=== PATIENT | female | born 1955 | race American Indian/Alaskan Native ===

== ENCOUNTER 2017-10-01 12:56 | Emergency (ER) | payer BC ==
[2017-10-01] MEDS ORDERED: NORCO 7.5/325 PO ONE (15:07)
--- NOTE | 2017-10-01 15:07 | Emergency Department Report ---
Blank Doc - Documentation Documentation: Patient is a 61-year-old female who's complaining of right sided back pain. 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 Patient states that the pain is progressively getting worse instead of better despite being on a muscle relaxant that her primary care physician gave her. Patient states the pain is 8 out of 10 is constant and worse with movement better with rest. Patient also states that it hurts when she takes a deep breath as well and has been slightly short of breath. Patient denies any productive cough fever chills at this moment. Patient denies any right upper quadrant pain when she eats.
[2017-10-01] MEDS ORDERED: TORADOL IV ONE (16:04)
[2017-10-01 16:19] LABS: Basophils # (Auto) 0.1 K/mm3 (0.0-0.1); Basophils % (Auto) 0.6 % (0.0-1.8); Eosinophils # (Auto) 0.2 K/mm3 (0.0-0.4); Eosinophils % (Auto) 2.4 % (0.0-4.3); Hematocrit 37.5 % (30.3-42.9); Hemoglobin 12.2 gm/dl (10.1-14.3); Lymphocytes # (Auto) 2.4 K/mm3 (1.2-5.4); Lymphocytes % (Auto) 29.3 % (13.4-35.0); Mean Corpuscular HGB Conc 33 % (30-34); Mean Corpuscular Volume 76 fl (79-97); Monocytes # (Auto) 0.4 K/mm3 (0.0-0.8); Monocytes % (Auto) 4.6 % (0.0-7.3); Platelet Count 296 K/mm3 (140-440); Red Blood Count 4.91 M/mm3 (3.65-5.03); Red Cell Distribution Width 17.9 % (13.2-15.2)
[2017-10-01 16:23] LABS: Mean Corpuscular Hemoglobin 25 pg (28-32)
[2017-10-01 16:25] LABS: INR 0.87 (0.87-1.13); Partial Thromboplastin Time 29.3 Sec. (24.2-36.6)
[2017-10-01 16:30] LABS: Bacteria,Urine 1+ /HPF (Negative); Bilirubin,Urine NEG (Negative); Blood,Urine NEG (Negative); Color,Urine Straw (Yellow); Protein,Urine <15 mg/dL mg/dL (Negative); Urobilinogen,Urine < 2.0 mg/dL (<2.0)
[2017-10-01 16:35] LABS: BUN/Creatinine Ratio 18; Blood Urea Nitrogen 14 mg/dL (7-17); Calcium 9.2 mg/dL (8.4-10.2); Hemolysis Index 1
--- NOTE | 2017-10-01 19:14 | Nuclear Medicine Report ---
FINAL REPORT EXAM: NM LUNG SCAN PERF/VENT HISTORY: elevated ddimer, right sided pleur back/chest pain TECHNIQUE: Ventilation-perfusion scan Ventilation study performed with 15 millicurie Xe-[id number] Perfusion study performed following IV administration 5 millicuries technetium 99 M MAA PRIORS: Correlation made to chest radiograph of the same day FINDINGS: Perfusion study there is homogeneous distribution of the radiotracer. No perfusion defects identified. On ventilation study there is homogeneous distribution with no evidence for significant air trapping. IMPRESSION: Negative. No scintigraphic evidence for acute pulmonary embolus
--- NOTE | 2017-10-01 19:15 | XRay Report ---
FINAL REPORT EXAM: XR CHEST ROUTINE 2V HISTORY: chest back pain TECHNIQUE: Two view chest PA and lateral PRIORS: None. FINDINGS: Cardiac and mediastinal contours are unremarkable. No focal pulmonary infiltrate is identified. No pleural fluid collection seen. Pulmonary vasculature is unremarkable. IMPRESSION: Negative two-view chest
[2017-10-01 19:23] VITALS: BP 124/70
--- NOTE | 2017-10-01 19:53 | Emergency Department Report ---
ED Back Pain/Injury HPI - General Chief Complaint: Back Pain/Injury Stated Complaint: CP/SUKUMAR/BACK PAIN Time Seen by Provider: 10/01/17 14:52 Source: patient Limitations: No Limitations - History of Present Illness Initial Comments: This is a 61-year-old female nontoxic, well nourished in appearance, no acute signs of distress presents to the ED with c/o of acute on chronic intermittent right mid back pain x1 year. 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 Patient stated it became worse today. Patient denies any trauma to the UVJ. Patient stated at times she gets short of breath and describes pain as stabbing sensation and aching. Patient denies any abdominal pain. Patient denies any chest pain, numbness, tingling, fever, chills, nausea , vomiting, headache or stiff neck. Patient denies any allergies or significant past medical history. MD Complaint: back pain -: days(s) (2) Similar Symptoms Previously: Yes Place: home Radiation: other (right chest region) Severity: mild Severity scale (0 -10): 8 Quality: stabbing, aching Consistency: intermittent, now resolved Improves With: immobilization Worsens With: movement Context: while lifting, turning/twisting Associated Symptoms: denies other symptoms. denies: confusion, weakness, chest pain, numbness, difficulty walking, cough, difficulty urinating, diaphoresis, incontinence, fever/chills, constipation, headaches, abdominal pain, loss of appetite, malaise, nausea/vomiting, rash, seizure, shortness of breath, syncope - Related Data Previous Rx's Medication Instructions Recorded Last Taken Type Ibuprofen [Motrin] 600 mg PO Q8H PRN #30 tablet 10/01/17 Unknown Rx methOCARBAMOL [Robaxin TAB] 500 mg PO BID #20 tab 10/01/17 Unknown Rx Allergies Allergy/AdvReac Type Severity Reaction Status Date / Time No Known Allergies Allergy Unverified 10/01/17 13:11 ED Review of Systems ROS: Stated complaint: CP/SUKUMAR/BACK PAIN Other details as noted in HPI Constitutional: denies: chills, fever Eyes: denies: eye pain, eye discharge, vision change ENT: denies: ear pain, throat pain Respiratory: denies: cough, shortness of breath, wheezing Cardiovascular: denies: chest pain, palpitations Endocrine: no symptoms reported Gastrointestinal: denies: abdominal pain, nausea, diarrhea Genitourinary: denies: urgency, dysuria, discharge Musculoskeletal: back pain. denies: joint swelling, arthralgia Skin: denies: rash, lesions Neurological: denies: headache, weakness, paresthesias Psychiatric: denies: anxiety, depression Hematological/Lymphatic: denies: easy bleeding, easy bruising ED Past Medical Hx - Past Medical History Hx Hypertension: Yes Hx Diabetes: Yes ("borderline") - Surgical History Past Surgical History?: No - Social History Smoking Status: Never Smoker Substance Use Type: None - Medications Home Medications: Home Medications Medication Instructions Recorded Confirmed Last Taken Type Ibuprofen [Motrin] 600 mg PO Q8H PRN #30 tablet 10/01/17 Unknown Rx methOCARBAMOL [Robaxin TAB] 500 mg PO BID #20 tab 10/01/17 Unknown Rx ED Physical Exam - General Limitations: No Limitations General appearance: alert, in no apparent distress - Head Head exam: Present: atraumatic, normocephalic - Eye Eye exam: Present: normal appearance Pupils: Present: normal accommodation - ENT ENT exam: Present: normal exam, mucous membranes moist - Neck Neck exam: Present: normal inspection, full ROM. Absent: tenderness, meningismus, lymphadenopathy, thyromegaly - Respiratory Respiratory exam: Present: normal lung sounds bilaterally. Absent: respiratory distress, wheezes, rales, rhonchi, stridor, chest wall tenderness, accessory muscle use, decreased breath sounds, prolonged expiratory - Cardiovascular Cardiovascular Exam: Present: regular rate, normal rhythm, normal heart sounds. Absent: bradycardia, tachycardia, irregular rhythm, systolic murmur, diastolic murmur, rubs, gallop - GI/Abdominal GI/Abdominal exam: Present: soft, normal bowel sounds. Absent: distended, tenderness, guarding, rebound, rigid, diminished bowel sounds - Expanded GI/Abdominal Exam Expanded GI/Abdominal exam: Absent: psoas sign, obturator sign, heel tap sign, Hernandez's sign, Rovsing's sign, tenderness at Mcburney's Point, ascites - Rectal Rectal exam: Present: deferred - Extremities Exam Extremities exam: Present: normal inspection, full ROM, normal capillary refill. Absent: tenderness, pedal edema, joint swelling, calf tenderness - Back Exam Back exam: Present: normal inspection, full ROM, paraspinal tenderness ( midthroacic region). Absent: tenderness, CVA tenderness (R), CVA tenderness (L) , muscle spasm, vertebral tenderness, rash noted - Expanded Back Exam Expanded Back exam: Absent: saddle anesthesia Back exam: Negative Straight Leg Raising: Left, Right - Neurological Exam Neurological exam: Present: alert, oriented X3, normal gait, reflexes normal - Psychiatric Psychiatric exam: Present: normal affect, normal mood - Skin Skin exam: Present: warm, dry, intact, normal color. Absent: rash ED Course Vital Signs 10/01/17 10/01/17 10/01/17 13:07 15:19 19:22 Temperature 98.2 F 98.4 F Pulse Rate 99 H 87 Respiratory 16 16 18 Rate Blood Pressure 112/65 Blood Pressure 124/70 [Right] O2 Sat by Pulse 98 96 Oximetry - Reevaluation(s) Reevaluation #1: 10/01/17 19:54 Patient is speaking in full sentences with no signs of distress noted. - Consultations Consultation #1: 10/01/17 19:57 Patient has been consulted with Dr. Groves about patient history, physical exam , and labs and examined and screened patient and agrees to ED plan of care and discharge plan of care. ED Medical Decision Making - Lab Data Result diagrams: 10/01/17 16:06 10/01/17 16:06 - Medical Decision Making This is a 61-year-old female that presents with muscle spasm. Patient is stable and was examined by me and Dr. Groves. Labs obtained and all within normal limits. Normal xray of chest results indicated by radiologist. VQ scan negative and normal and also dictated by radiologist. Patient received pain medication and EDif symptoms has resolved and subsided. Daughters currently at the bedside and states she will talk the patient home after discharge due to drowsiness of [place]. Patient was instructed to discontinue Flexeril and try taken Robaxin and see if this would help her for muscle spasms. Patient is also discharged with Motrin. Patient was referred instructed to Follow-up with a primary care doctor in 3-5 days or if symptoms worsen and continue return to emergency room as soon as possible. At time of discharge, the patient does not seem toxic or ill in appearance. No acute signs of distress noted. Patient agrees to discharge treatment plan of care. No further questions noted by the patient. Critical care attestation.: If time is entered above; I have spent that time in minutes in the direct care of this critically ill patient, excluding procedure time. ED Disposition Clinical Impression: Muscle spasm Disposition: DC-01 TO HOME OR SELFCARE Is pt being admited?: No Does the pt Need Aspirin: No Condition: Stable Instructions: Muscle Spasm (ED), Ibuprofen (By mouth), Methocarbamol (By mouth) Additional Instructions: Follow-up with a primary care doctor in 3-5 days or if symptoms worsen and continue return to emergency room as soon as possible. Discontinue Flexeril and take Robaxin as prescribed. This may cause drowsiness be aware and do not operate any machinery while taking Robaxin. Prescriptions: Ibuprofen [Motrin] 600 mg PO Q8H PRN #30 tablet PRN Reason: Pain methOCARBAMOL [Robaxin TAB] 500 mg PO BID #20 tab Referrals: RAZ STODDARD [Other] - 3-5 Days MARIAN CHA MD [Staff Physician] - 3-5 Days [facility] [Outside] - 3-5 Days [facility] [Outside] - 3-5 Days Forms: Work/School Release Form(ED)
== END 2017-10-01 20:11 | disposition home or self-care (01) ==
LOC: ED 12:56
DX: M62.830 Muscle spasm of back (principal); I10 Essential (primary) hypertension
CPT/HCPCS: 36415; 71046; 78582; 80048; 81001; 85025; 85379; 85610; 85730; 96374; 99284; A9540; A9558; J1885

== ENCOUNTER 2020-04-17 09:49 | Emergency (ER) | payer MEDICARE ==
[2020-04-17 09:55] VITALS: BP 120/69
[2020-04-17] MEDS ORDERED: HYDROcodone/ACETAMINOPHEN 5-325 MG TAB PO ONE (12:44)
--- NOTE | 2020-04-17 13:21 | Cat Scan Report ---
CT LUMBAR SPINE WITHOUT CONTRAST INDICATION: Fall, low back pain. TECHNIQUE: Axial CT images of the spine were obtained. Sagittal and coronal reformatted images were produced. Al l CT scans at this location are performed using CT dose reduction for ALARA by means of automated exp osure control. COMPARISON: None available. FINDINGS: ACUTE FRACTURE(S) OR SUBLUXATION: None. SPINAL DEGENERATIVE CHANGES: There is moderate bilateral facet DJD from L3 through S1 with grade 1 de generative anterolisthesis of L4 and L5. There is no appreciable significant canal stenosis or neural foraminal stenosis. PARASPINAL SOFT TISSUES: No soft tissue swelling or other acute abnormalities. ADDITIONAL FINDINGS: No significant additional findings. IMPRESSION: 1. No acute fracture or subluxation in the spine in neutral position. 2. Lumbar spine degenerative findings as detailed above. Signer Name: Dave Benjamin MD Signed: 04/17/2020 1:17 PM Workstation Name: [id number]
--- NOTE | 2020-04-17 13:40 | Emergency Department Report ---
ED Back Pain/Injury HPI - General Chief Complaint: Back Pain/Injury Stated Complaint: BUTTOCK INJURY Time Seen by Provider: 04/17/20 12:33 Source: patient Limitations: No Limitations - History of Present Illness Initial Comments: Patient is a 64-year-old female presents emergency room with complaints of lower back pain that began 4 days ago. Patient states that she was walking down a handicap ramp and slipped and fell and hit her lower back. She has been ambulatory since then. She states that she has some bruising present to the back. She denies any numbness, weakness, bowel or bladder incontinence, any other injury, loss of consciousness, hitting her head, fever, vomiting, urinary symptoms, abd pain, lower extremity injury, or any other injury. She denies being on any blood thinners. She has a past medical history of hypertension and borderline diabetes. No allergies to medications. - Related Data Previous Rx's Medication Instructions Recorded Last Taken Type Ibuprofen [Motrin] 600 mg PO Q8H PRN #30 tablet 10/01/17 Unknown Rx methOCARBAMOL [Robaxin TAB] 500 mg PO BID #20 tab 10/01/17 Unknown Rx Acetaminophen [Tylenol] 650 mg PO Q8HR PRN #20 capsule 04/17/20 Unknown Rx traMADoL [Ultram 50 MG tab] 50 mg PO Q6HR PRN #10 tablet 04/17/20 Unknown Rx Allergies Allergy/AdvReac Type Severity Reaction Status Date / Time No Known Allergies Allergy Unverified 10/01/17 13:11 ED Review of Systems ROS: Stated complaint: BUTTOCK INJURY Other details as noted in HPI Comment: All other systems reviewed and negative ED Past Medical Hx - Past Medical History Previous Medical History?: Yes Hx Hypertension: Yes Hx Diabetes: Yes ("borderline") - Social History Smoking Status: Never Smoker Substance Use Type: None - Medications Home Medications: Home Medications Medication Instructions Recorded Confirmed Last Taken Type Ibuprofen [Motrin] 600 mg PO Q8H PRN #30 tablet 10/01/17 Unknown Rx methOCARBAMOL [Robaxin TAB] 500 mg PO BID #20 tab 10/01/17 Unknown Rx Acetaminophen [Tylenol] 650 mg PO Q8HR PRN #20 capsule 04/17/20 Unknown Rx traMADoL [Ultram 50 MG tab] 50 mg PO Q6HR PRN #10 tablet 04/17/20 Unknown Rx ED Physical Exam - General Limitations: No Limitations General appearance: alert, in no apparent distress - Head Head exam: Present: atraumatic, normocephalic - Eye Eye exam: Present: normal appearance - ENT ENT exam: Present: mucous membranes moist - Neck Neck exam: Present: normal inspection, full ROM. Absent: tenderness - Respiratory Respiratory exam: Present: normal lung sounds bilaterally. Absent: respiratory distress, wheezes, rales, rhonchi, stridor, chest wall tenderness, accessory muscle use, decreased breath sounds, prolonged expiratory - Cardiovascular Cardiovascular Exam: Present: regular rate, normal rhythm, normal heart sounds. Absent: systolic murmur, diastolic murmur, rubs, gallop - Extremities Exam Extremities exam: Present: other (pelvis is stable) - Back Exam Back exam: Present: full ROM, paraspinal tenderness (lumbar), vertebral tenderness (lumbar), other (no midline C-spine or T-spine ttp, no step offs, no deformities, ecchymosis present to the lower back, no crepitus) - Neurological Exam Neurological exam: Present: alert, oriented X3, CN II-XII intact, normal gait. Absent: motor sensory deficit - Psychiatric Psychiatric exam: Present: normal affect, normal mood - Skin Skin exam: Present: warm, dry ED Course Vital Signs 04/17/20 04/17/20 04/17/20 09:54 13:14 14:01 Temperature 98.3 F Pulse Rate 82 89 Respiratory 18 18 18 Rate Blood Pressure 120/69 O2 Sat by Pulse 99 100 Oximetry 04/17/20 14:02 Temperature Pulse Rate Respiratory 18 Rate Blood Pressure O2 Sat by Pulse Oximetry ED Medical Decision Making - Radiology Data Radiology results: report reviewed CT LUMBAR SPINE WITHOUT CONTRAST INDICATION: Fall, low back pain. TECHNIQUE: Axial CT images of the spine were obtained. Sagittal and coronal reformatted images were produced. All CT scans at this location are performed using CT dose reduction for ALARA by means of automated exposure control. COMPARISON: None available. FINDINGS: ACUTE FRACTURE(S) OR SUBLUXATION: None. SPINAL DEGENERATIVE CHANGES: There is moderate bilateral facet DJD from L3 through S1 with grade 1 degenerative anterolisthesis of L4 and L5. There is no appreciable significant canal stenosis or neural foraminal stenosis. PARASPINAL SOFT TISSUES: No soft tissue swelling or other acute abnormalities. ADDITIONAL FINDINGS: No significant additional findings. IMPRESSION: 1. No acute fracture or subluxation in the spine in neutral position. 2. Lumbar spine degenerative findings as detailed above. Signer Name: Dave Benjamin MD Signed: 04/17/2020 1:17 PM Workstation Name: [id number] Transcribed By: SAMEER Dictated By: Dave Benjamin MD Electronically Authenticated By: Dave Benjamin MD Signed Date/Time: 04/17/201316 DD/ 14 TD/TT: - Medical Decision Making Patient is a 64-year-old female presents emergency room with complaints of lower back pain that began 4 days ago. Patient states that she was walking down a handicap ramp and slipped and fell and hit her lower back. She has been ambulatory since then. She states that she has some bruising present to the back. She denies any numbness, weakness, bowel or bladder incontinence, any other injury, loss of consciousness, hitting her head, fever, vomiting, urinary symptoms, abd pain, lower extremity injury, or any other injury. She denies being on any blood thinners. She has a past medical history of hypertension and borderline diabetes. No allergies to medications. On exam patient has midline lumbar and paraspinal lumbar tenderness palpation, no step-offs, no deformities, no focal neuro deficits,no midline C-spine or T-spine ttp, no step offs, no deformities, ecchymosis present to the lower back, no crepitus. CT lumbar spine: 1. No acute fracture or subluxation in the spine in neutral position. 2. Lumbar spine degenerative findings as detailed above. Patient given pain medication while in the emergency department as she did not drive and symptoms improved. Discussed all results with patient and answered questions. Advised patient that she will need to follow-up with orthopedic/spine doctor. Patient given prescription for Tylenol and tramadol. Advised patient Please take medication as prescribed as needed. Do not drive or operate heavy machinery while taking pain medication, please be careful while taking pain medication. May use ice pack, heating pad, rest. Follow-up with orthopedic/spine doctor. Follow-up with your primary care doctor. Return to emergency room for any new or worsening symptoms. - Differential Diagnosis strain, sprain, fx, dislocation, herniated disc, DDD, spondylolisthesis Critical care attestation.: If time is entered above; I have spent that time in minutes in the direct care of this critically ill patient, excluding procedure time. ED Disposition Clinical Impression: Fall Qualifiers: Encounter type: initial encounter Qualified Code(s): W19.XXXA - Unspecified fall, initial encounter Low back pain Qualifiers: Chronicity: acute Back pain laterality: midline Sciatica presence: without sciatica Qualified Code(s): M54.5 - Low back pain Disposition: DC- TO HOME OR SELFCARE Is pt being admited?: No Does the pt Need Aspirin: No Condition: Stable Instructions: Acute Low Back Pain (ED), Contusion in Adults (ED) Additional Instructions: Please take medication as prescribed as needed. Do not drive or operate heavy machinery while taking pain medication, please be careful while taking pain medication. May use ice pack, heating pad, rest. Follow-up with orthopedic/spine doctor. Follow-up with your primary care doctor. Return to emergency room for any new or worsening symptoms. Prescriptions: Acetaminophen [Tylenol] 650 mg PO Q8HR PRN #20 capsule PRN Reason: Pain, Moderate (4-6) traMADoL [Ultram 50 MG tab] 50 mg PO Q6HR PRN #10 tablet PRN Reason: Pain , Severe (7-10) Referrals: RAZ ARRINGTON MD [Primary Care Provider] - 2-3 Days VIVEK MCEKON II, MD [Staff Physician] - 2-3 Days [facility] [Provider Group] - 2-3 Days Time of Disposition: 13:39 Print Language: TAIWANESE
== END 2020-04-17 14:02 | disposition home or self-care (01) ==
LOC: ED 09:49
DX: M54.5 Low back pain (principal); I10 Essential (primary) hypertension; E11.9 Type 2 diabetes mellitus without complications; Z79.899 Other long term (current) drug therapy; W19.XXXA Unspecified fall, initial encounter; Y93.89 Activity, other specified; Y92.89 Other specified places as the place of occurrence of the external cause; Y99.8 Other external cause status
CPT/HCPCS: 72131; 99283

== ENCOUNTER 2020-05-06 10:23 | Emergency (ER) | payer MEDICARE ==
[2020-05-06 10:39] VITALS: BP 147/80
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
[2020-05-06] MEDS ORDERED: MORPHINE 2 MG/1 ML INJ IV ONE (13:59)
[2020-05-06 14:23] LABS: Basophils # (Auto) 0.1 K/mm3 (0.0-0.1); Basophils % (Auto) 1.2 % (0.0-1.8); Eosinophils # (Auto) 0.2 K/mm3 (0.0-0.4); Eosinophils % (Auto) 2.4 % (0.0-4.3); Hematocrit 38.6 % (30.3-42.9); Hemoglobin 12.5 gm/dl (10.1-14.3); Lymphocytes # (Auto) 2.4 K/mm3 (1.2-5.4); Lymphocytes % (Auto) 35.5 % (13.4-35.0); Mean Corpuscular HGB Conc 33 % (30-34); Mean Corpuscular Volume 82 fl (79-97); Monocytes # (Auto) 0.5 K/mm3 (0.0-0.8); Monocytes % (Auto) 7.7 % (0.0-7.3); Platelet Count 259 K/mm3 (140-440); Red Blood Count 4.72 M/mm3 (3.65-5.03); Red Cell Distribution Width 16.5 % (13.2-15.2)
[2020-05-06 14:40] LABS: Alanine Aminotransferase 20 units/L (7-56); BUN/Creatinine Ratio 12; Blood Urea Nitrogen 11 mg/dL (7-17); Calcium 9.3 mg/dL (8.4-10.2); Hemolysis Index 8
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
== END 2020-05-06 17:42 | disposition home or self-care (01) ==
LOC: ED 10:23
DX: S16.1XXA Strain of muscle, fascia and tendon at neck level, initial encounter (principal); M54.6 Pain in thoracic spine; R10.11 Right upper quadrant pain; K11.20 Sialoadenitis, unspecified; I10 Essential (primary) hypertension; E11.9 Type 2 diabetes mellitus without complications; Z79.1 Long term (current) use of non-steroidal anti-inflammatories (NSAID); Z79.899 Other long term (current) drug therapy; W19.XXXA Unspecified fall, initial encounter; Y93.89 Activity, other specified; Y92.89 Other specified places as the place of occurrence of the external cause; Y99.8 Other external cause status
CPT/HCPCS: 36415; 70491; 74177; 80053; 83690; 85025; 96374; 99284; J2270; Q9967